=== PATIENT | female | born 1990 | race Caucasian/White ===

== ENCOUNTER 2022-06-02 11:10 | Inpatient (IN) | payer MEDICAID ==
[~2022-06-02] VITALS: Ht 162.6 cm; Wt 100.0 kg
[~2022-06-02 11:10] MED LIST: ONDA4TAB12 PO
[2022-06-02 16:43] LABS: BASOPHILS % (AUTO) 0.3 % (0-1); EOSINOPHILS # (AUTO) 0.1 X10'3 (0-0.9); EOSINOPHILS % (AUTO) 0.9 % (0-6); HEMATOCRIT 41.9 % (35.0-45.0); HEMOGLOBIN 14.4 g/dl (12.0-16.0); LYMPHOCYTES # (AUTO) 1.7 X10'3 (1.1-4.8); LYMPHOCYTES % (AUTO) 19.4 % (21-51); MEAN CORPUSCULAR HEMOGLOBIN 28.1 PG (27.0-31.0); MEAN CORPUSCULAR HGB CONC 34.4 g/dL (33.0-36.5); MEAN CORPUSCULAR VOLUME 81.7 FL (78-98); MEAN PLATELET VOLUME 7.9 FL (7.4-10.4); MONOCYTES % (AUTO) 12.1 % (2-12); NEUTROPHILS # (AUTO) 5.9 X10'3 (1.8-7.7); NEUTROPHILS % (AUTO) 67.3 % (42-75); PLATELET COUNT 697 X10'3 (140-440); RED BLOOD COUNT 5.13 X10'6 (4.20-5.60); RED CELL DISTRIBUTION WIDTH 13.2 % (11.5-14.5); WHITE BLOOD COUNT 8.7 X10'3 (4.5-11.0)
[2022-06-02 17:13] LABS: ALANINE AMINOTRANSFERASE 56 U/L (12-78); ALBUMIN 2.9 G/DL (3.4-5.0); ALBUMIN/GLOBULIN RATIO 0.6 (1.1-1.5); ALKALINE PHOSPHATASE 99 IU/L (46-116); AMYLASE 25 U/L (25-115); ANION GAP 11 (8-16); ASPARTATE AMINO TRANSFERASE 47 U/L (10-37); BILIRUBIN,TOTAL 0.5 MG/DL (0.1-1.0); BLOOD UREA NITROGEN 4 MG/DL (7-18); BUN/CREATININE RATIO 7.1 (10.0-20.0); CALCIUM 9.4 MG/DL (8.5-10.1); CHLORIDE 93 MMOL/L (99-107); CREATININE 0.56 MG/DL (0.40-0.90); GLUCOSE 92 MG/DL (70-104); LIPASE 51 U/L (73-393); POTASSIUM 3.8 MMOL/L (3.5-5.1); SODIUM 130 MMOL/L (135-145); TOTAL CARBON DIOXIDE 25.9 MMOL/L (24-32); eGFR > 90 ML/MIN
[2022-06-02 17:21] LABS: HCG SERUM QL NEGATIVE
[2022-06-02] MEDS ORDERED: iohexol 300mg/ml 100ml inj. ONE (17:36)
[2022-06-02] MEDS ORDERED: LIDOcaine 1% 30ml preserv. free vial IJ ONE (18:45)
[2022-06-02] MEDS ORDERED: ondansetron/PF 4mg/2ml inj IV PRN (21:05)
[2022-06-02] MEDS ORDERED: magnesium 4gm in 100ml NS 100 ML IV PRN (21:05)
[2022-06-02] MEDS ORDERED: potassium Cl 20 mEq SR tablet PO PRN ×2 (21:05)
[2022-06-02] MEDS ORDERED: mag hydrox/Alum hydrox/simeth 30ml oral suspension PO PRN (21:05)
[2022-06-02] MEDS ORDERED: potassium Cl 40MEQ/1/2NS 520ml 520 ML IV PRN (21:05)
[2022-06-02] MEDS ORDERED: acetaminophen 325mg tablet PO PRN ×2 (21:05)
[2022-06-02] MEDS ORDERED: magnesium hydroxide 30ml (MOM) UD suspension PO PRN (21:05)
[2022-06-02] MEDS ORDERED: HYDROcodone/acetaminophen 5mg/325mg tablet PO PRN (21:05)
[2022-06-02] MEDS ORDERED: HYDROcodone/acetaminophen 10/325mg tab PO PRN (21:05)
[2022-06-02] MEDS ORDERED: NO HOME MEDS (21:09)
[2022-06-02] MEDS ORDERED: LORazepam 0.5 MG tablet PO PRN (21:30)
--- NOTE | 2022-06-02 22:30 | NUR ---
pt arrived to floor in [facility]. settled into bed, oriented to room. call light in reach.
[2022-06-02 22:50] VITALS: BP 130/91
[2022-06-02] MEDS ORDERED: HYDROmorphone inj. 0.5 MG/0.5 ML DISP.SYRIN IV PRN (23:50)
[2022-06-02] MEDS ORDERED: HYDROmorphone 1 mg/ml syringe IV PRN (23:50)
[2022-06-03] VITALS (8 sets, daily range): BP systolic 108–156; BP diastolic 74–95
--- NOTE | 2022-06-03 06:47 | NUR ---
Patient checked on, NAD at this time. Bed locked/ lowest position, call reed within reach. Fluids present.
--- NOTE | 2022-06-03 06:48 | NUR ---
Problems reprioritized. Patient report given, questions answered & plan of care reviewed with MAR Hansen.
[2022-06-03 07:44] LABS: BASOPHILS # (AUTO) 0.1 X10'3 (0-0.2); BASOPHILS % (AUTO) 0.7 % (0-1); EOSINOPHILS # (AUTO) 0.1 X10'3 (0-0.9); EOSINOPHILS % (AUTO) 1.5 % (0-6); HEMATOCRIT 37.5 % (35.0-45.0); HEMOGLOBIN 12.8 g/dl (12.0-16.0); LYMPHOCYTES # (AUTO) 1.3 X10'3 (1.1-4.8); LYMPHOCYTES % (AUTO) 17.9 % (21-51); MEAN CORPUSCULAR HGB CONC 34.1 g/dL (33.0-36.5); MEAN CORPUSCULAR VOLUME 82.1 FL (78-98); MEAN PLATELET VOLUME 8.3 FL (7.4-10.4); MONOCYTES # (AUTO) 1.1 X10'3 (0-0.9); MONOCYTES % (AUTO) 15.9 % (2-12); NEUTROPHILS # (AUTO) 4.5 X10'3 (1.8-7.7); PLATELET COUNT 575 X10'3 (140-440); RED BLOOD COUNT 4.56 X10'6 (4.20-5.60); RED CELL DISTRIBUTION WIDTH 13.1 % (11.5-14.5)
[2022-06-03] MEDS ORDERED: docusate sod 100mg capsule PO SCH (08:00)
[2022-06-03] MEDS ORDERED: K and/or MAG REPLACEMENT MC SCH (08:00)
[2022-06-03 08:11] LABS: ALANINE AMINOTRANSFERASE 40 U/L (12-78); ALBUMIN 2.4 G/DL (3.4-5.0); ALBUMIN/GLOBULIN RATIO 0.5 (1.1-1.5); ALKALINE PHOSPHATASE 88 IU/L (46-116); ANION GAP 16 (8-16); ASPARTATE AMINO TRANSFERASE 40 U/L (10-37); BILIRUBIN,TOTAL 0.5 MG/DL (0.1-1.0); BLOOD UREA NITROGEN 3 MG/DL (7-18); BUN/CREATININE RATIO 5.9 (10.0-20.0); CALCIUM 8.8 MG/DL (8.5-10.1); CHLORIDE 95 MMOL/L (99-107); CREATININE 0.51 MG/DL (0.40-0.90); GLUCOSE 93 MG/DL (70-104); MAGNESIUM 2.3 MG/DL (1.5-2.4); POTASSIUM 3.6 MMOL/L (3.5-5.1); SODIUM 131 MMOL/L (135-145); TOTAL CARBON DIOXIDE 20.5 MMOL/L (24-32); TOTAL PROTEIN 6.8 G/DL (6.4-8.2); eGFR > 90 ML/MIN
--- NOTE | 2022-06-03 09:13 | NUR ---
PAGER ID: [phone] MESSAGE: Alice Surg [phone] Re: Peggy [phone] please call re: diet order spoke with angio re: Para/biopsy
[2022-06-03] MEDS ORDERED: albumin (human) 25% 100 ML IV solution IV ONE (11:05)
[2022-06-03 11:50] LABS: GLUCOSE,BODY FLUID 63 MG/DL; LDH,BODY FLUID 572 U/L; TOTAL PROTEIN,BODY FLUID 5.2 G/DL
[2022-06-03 11:53] LABS: EOSINOPHILS,BODY FLUID 1 %; LYMPHOCYTES,BODY FLUID 58 %; MONOCYTES,BODY FLUID 2 %; NEUTROPHILS,BODY FLUID 39 %
[2022-06-03 11:55] LABS: BF RBC COUNT 3050 /CU MM; BF WBC COUNT 1125 /CU MM (0-1000); BFAPPEAR CLOUDY; BFCOLOR YELLOW; BFVOLUME 60 ML
[2022-06-03] MEDS ORDERED: LIDOcaine 1% 30ml preserv. free vial ONE (12:41)
--- NOTE | 2022-06-03 15:56 | NUR ---
Patient is doing well s/p Bx with angio. Sites are closed, no drainage, or bruising seen. VS stable: 128/62, PL 03/01: Temp: 98.4, RR: 16, P:62.
[2022-06-03] MEDS ORDERED: HYDR-3965 PO (17:28)
--- NOTE | 2022-06-03 17:47 | NUR ---
Patient is discharging. PL controlled, refused any pain medications. Educated on s/s of monitoring post discharge, Paperwork received. Accompanied by , leaving personal vehicle. Patients s/p Bx with angio are CDI, no draining, no bruising. Notified to call Dr. Sullivan's office with phone number provided. IV d/c'd, cannula intact.
[2022-06-03] MEDS ORDERED: enoxaparin 40mg/0.4ml syringe SQ SCH (20:00)
[2022-06-04 16:28] LABS: HBSAG SCREEN Negative (Negative); HEP A AB, IGM Negative (Negative); HEPATITIS C VIRUS ANTIBODY Non Reactive (Non Reactive)
[2022-06-07 12:20] LABS: HBV IU/mL HBV DNA not detected IU/mL (.)
== END 2022-06-03 18:00 | disposition home or self-care (01) | DRG 694 ==
LOC: ER 11:11 → ED HOLD 21:07 → SUR 3N 22:45
PROVIDERS: ADMIT Family Medicine; ATTEND Internal Medicine
PROC: BW211ZZ Computerized Tomography (CT Scan) of Abdomen and Pelvis using Low Osmolar Contrast (ICD-10-PCS; principal; 2022-06-02)
PROC: 0W9G3ZX Drainage of Peritoneal Cavity, Percutaneous Approach, Diagnostic (ICD-10-PCS; 2022-06-03)
PROC: 0DBU3ZX Excision of Omentum, Percutaneous Approach, Diagnostic (ICD-10-PCS; 2022-06-03)
DX: C80.1 Malignant (primary) neoplasm, unspecified (principal); R18.0 Malignant ascites; J90 Pleural effusion, not elsewhere classified; K76.0 Fatty (change of) liver, not elsewhere classified; R16.2 Hepatomegaly with splenomegaly, not elsewhere classified; E87.1 Hypo-osmolality and hyponatremia; D25.9 Leiomyoma of uterus, unspecified; D75.839 Thrombocytosis, unspecified; F43.10 Post-traumatic stress disorder, unspecified; J98.11 Atelectasis; R00.0 Tachycardia, unspecified; F41.9 Anxiety disorder, unspecified; K42.9 Umbilical hernia without obstruction or gangrene; K80.20 Calculus of gallbladder without cholecystitis without obstruction; N83.292 Other ovarian cyst, left side; Z80.0 Family history of malignant neoplasm of digestive organs; Z87.891 Personal history of nicotine dependence; Z56.0 Unemployment, unspecified; Z59.00 Homelessness unspecified; Z79.899 Other long term (current) drug therapy
CPT/HCPCS: 36415; 49083; 49180; 74177; 77012; 80053; 82150; 82945; 83615; 83690; 83735; 84157; 84703; 85025; 86301; 86304; 86705; 86706; 86709; 86803; 87070; 87075; 87081; 87340; 87517; 87522; 89051; 96374; 99285; A4615; G0378; J3490; P9047; Q9967

== ENCOUNTER 2022-06-19 07:14 | Emergency (ER) | payer MEDICAID ==
[~2022-06-19] VITALS: Ht 162.6 cm; Wt 97.0 kg
[~2022-06-19 07:14] MED LIST changes: +HYDR-3965 PO
[2022-06-19] MEDS ORDERED: LIDOcaine 1% W/epiNEPHrine 1:100,000 20ml vial IJ ONE (09:10)
[2022-06-19 09:16] LABS: BASOPHILS # (AUTO) 0.1 X10'3 (0-0.2); BASOPHILS % (AUTO) 0.9 % (0-1); EOSINOPHILS # (AUTO) 0.1 X10'3 (0-0.9); EOSINOPHILS % (AUTO) 1.4 % (0-6); HEMOGLOBIN 14.7 g/dl (12.0-16.0); MONOCYTES # (AUTO) 0.8 X10'3 (0-0.9); NEUTROPHILS # (AUTO) 4.7 X10'3 (1.8-7.7); WHITE BLOOD COUNT 7.2 X10'3 (4.5-11.0)
[2022-06-19 09:18] LABS: HEMATOCRIT 44.7 % (35.0-45.0); LYMPHOCYTES # (AUTO) 1.6 X10'3 (1.1-4.8); LYMPHOCYTES % (AUTO) 22.3 % (21-51); MEAN CORPUSCULAR HEMOGLOBIN 26.8 PG (27.0-31.0); MEAN CORPUSCULAR HGB CONC 32.9 g/dL (33.0-36.5); MEAN CORPUSCULAR VOLUME 81.4 FL (78-98); MEAN PLATELET VOLUME 7.9 FL (7.4-10.4); MONOCYTES % (AUTO) 10.9 % (2-12); NEUTROPHILS % (AUTO) 64.5 % (42-75); PLATELET COUNT 689 X10'3 (140-440); RED BLOOD COUNT 5.49 X10'6 (4.20-5.60); RED CELL DISTRIBUTION WIDTH 13.8 % (11.5-14.5)
[2022-06-19 09:43] LABS: ALANINE AMINOTRANSFERASE 40 U/L (12-78); ALBUMIN 2.5 G/DL (3.4-5.0); ALBUMIN/GLOBULIN RATIO 0.5 (1.1-1.5); ALKALINE PHOSPHATASE 110 IU/L (46-116); ANION GAP 11 (8-16); ASPARTATE AMINO TRANSFERASE 50 U/L (10-37); BILIRUBIN,TOTAL 0.5 MG/DL (0.1-1.0); BLOOD UREA NITROGEN 6 MG/DL (7-18); CALCIUM 9.3 MG/DL (8.5-10.1); CHLORIDE 98 MMOL/L (99-107); CREATININE 0.67 MG/DL (0.40-0.90); GLUCOSE 104 MG/DL (70-104); MAGNESIUM 2.4 MG/DL (1.5-2.4); POTASSIUM 4.1 MMOL/L (3.5-5.1); SODIUM 135 MMOL/L (135-145); TOTAL CARBON DIOXIDE 25.9 MMOL/L (24-32); TOTAL PROTEIN 7.2 G/DL (6.4-8.2); eGFR > 90 ML/MIN
--- NOTE | 2022-06-19 09:54 | NUR ---
Dr Paigefs at bedside to perform paracentesis.
[2022-06-19] MEDS ORDERED: albumin (human) 25% 100 ML IV solution IV ONE (10:15)
[2022-06-19 11:32] VITALS: BP 117/73
== END 2022-06-19 11:48 | disposition home or self-care (01) ==
LOC: ER 07:15
DX: R18.8 Other ascites (principal); F41.9 Anxiety disorder, unspecified; F12.10 Cannabis abuse, uncomplicated; Z59.00 Homelessness unspecified; Z56.0 Unemployment, unspecified; Z79.899 Other long term (current) drug therapy; Z79.1 Long term (current) use of non-steroidal anti-inflammatories (NSAID)
CPT/HCPCS: 49083; 71045; 80053; 83735; 85025; 93005; 96374; 99285; J3490; P9047

== ENCOUNTER 2022-06-30 07:15 | Day surgery (SDC) | payer MEDICAID ==
[~2022-06-30] VITALS: Ht 162.6 cm; Wt 92.7 kg
[2022-06-30] MEDS ORDERED: albumin 25% 100mL bottle x 1 IV PRN (07:40)
[2022-06-30 07:57] VITALS: BP 127/76
[2022-06-30] MEDS ORDERED: LIDOcaine 1%/PF 5ML 10 MG/ML VIAL SQ ONE (08:10)
[2022-06-30 09:19] VITALS: BP 118/61
[2022-06-30 09:33] VITALS: BP 117/78
[2022-06-30 09:48] VITALS: BP 108/67
[2022-06-30 10:03] VITALS: BP 116/69
[2022-06-30 10:18] VITALS: BP 113/58
== END 2022-06-30 10:55 | disposition home or self-care (01) ==
LOC: SSTAY O 07:15
PROVIDERS: ATTEND Radiology Vascular & Interventional Radiology
DX: C56.9 Malignant neoplasm of unspecified ovary (principal); R18.0 Malignant ascites; F40.00 Agoraphobia, unspecified; Z79.899 Other long term (current) drug therapy; Z80.0 Family history of malignant neoplasm of digestive organs
CPT/HCPCS: 49083; J3490; P9047; A6258; A6449

== ENCOUNTER 2022-07-11 08:13 | Day surgery (SDC) | payer MEDICAID ==
[~2022-07-11 08:13] MED LIST changes: -HYDR-3965 PO
[2022-07-11] MEDS ORDERED: LIDOcaine 1%/PF 5ML 10 MG/ML VIAL SQ ONE (08:15)
[2022-07-11 08:23] VITALS: BP 125/85
[2022-07-11] MEDS ORDERED: IBUP-2766 PO (08:31)
[2022-07-11] MEDS ORDERED: normal saline 1000ml 1,000 ML IV PRN (08:35)
[2022-07-11 09:18] VITALS: BP 122/77
[2022-07-11 09:30] VITALS: BP 134/89
[2022-07-11] MEDS ORDERED: pneumococcal 23-VAL P-sac vacc 25 mcg/0.5ml vial IMVAC ONE (09:30)
[2022-07-11 09:46] VITALS: BP 125/65
[2022-07-11] MEDS: albumin 25% 100mL bottle x 1 IV PRN ×2 (09:51→10:39)
[2022-07-11 10:00] VITALS: BP 113/78
[2022-07-11 10:15] VITALS: BP 111/70
== END 2022-07-11 10:45 | disposition home or self-care (01) ==
LOC: SSTAY O 08:13
PROVIDERS: ATTEND Radiology Vascular & Interventional Radiology
DX: C56.9 Malignant neoplasm of unspecified ovary (principal); R18.0 Malignant ascites; F40.00 Agoraphobia, unspecified; Z23 Encounter for immunization; Z79.899 Other long term (current) drug therapy; Z98.890 Other specified postprocedural states
CPT/HCPCS: 49083; 90471; 90732; A6258; J3490; P9047; A6449

== ENCOUNTER 2022-07-19 07:44 | Day surgery (SDC) | payer MEDICAID ==
[2022-07-19] VITALS (8 sets, daily range): BP systolic 114–128; BP diastolic 65–89
[~2022-07-19] VITALS: Ht 162.6 cm; Wt 92.4 kg
[~2022-07-19 07:44] MED LIST changes: +IBUP-2766 PO
[2022-07-19] MEDS ORDERED: LIDOcaine 1%/PF 5ML 10 MG/ML VIAL SQ ONE (08:05)
[2022-07-19] MEDS ORDERED: albumin 25% 100mL bottle x 1 IV PRN (08:15)
== END 2022-07-19 10:30 | disposition home or self-care (01) ==
LOC: SSTAY O 07:44
PROVIDERS: ATTEND Radiology Diagnostic Radiology
DX: C56.9 Malignant neoplasm of unspecified ovary (principal); R18.0 Malignant ascites; F40.00 Agoraphobia, unspecified; Z79.899 Other long term (current) drug therapy; Z80.1 Family history of malignant neoplasm of trachea, bronchus and lung; Z80.0 Family history of malignant neoplasm of digestive organs
CPT/HCPCS: 49083; J3490; P9047; A6258; A6449

== ENCOUNTER 2022-07-26 06:41 | Day surgery (SDC) | payer MEDICAID ==
[~2022-07-26] VITALS: Ht 165.1 cm; Wt 91.9 kg
[~2022-07-26 06:41] MED LIST changes: +LIDOcaine 1%/PF 5ML 10 MG/ML VIAL SQ ONE
[2022-07-26 06:45] VITALS: BP 129/80
[2022-07-26] MEDS ORDERED: AMOX1TAB15 PO (06:55)
[2022-07-26] MEDS ORDERED: OFLO5DRO5 LEFT EAR (06:55)
[2022-07-26] MEDS ORDERED: albumin 25% 100mL bottle x 1 IV PRN (07:05)
[2022-07-26 08:27] VITALS: BP 137/62
[2022-07-26 08:42] VITALS: BP 135/76
[2022-07-26 08:57] VITALS: BP 124/77
[2022-07-26 09:00] VITALS: BP 121/76
[2022-07-26 09:15] VITALS: BP 134/75
== END 2022-07-26 09:30 | disposition home or self-care (01) ==
LOC: SSTAY O 06:41
PROVIDERS: ATTEND Radiology Vascular & Interventional Radiology
DX: C56.9 Malignant neoplasm of unspecified ovary (principal); R18.0 Malignant ascites; F40.00 Agoraphobia, unspecified; Z79.899 Other long term (current) drug therapy; Z80.0 Family history of malignant neoplasm of digestive organs; Z83.511 Family history of glaucoma
CPT/HCPCS: 49083; J3490; P9047; A6258; A6402; A6449

== ENCOUNTER 2022-08-25 08:11 | Day surgery (SDC) | payer MEDICAID ==
[~2022-08-25] VITALS: Ht 165.1 cm; Wt 93.6 kg
[~2022-08-25 08:11] MED LIST changes: +APIX2.5T PO; +IBUP-1984 PO; -IBUP-2766 PO; -LIDOcaine 1%/PF 5ML 10 MG/ML VIAL SQ ONE; -ONDA4TAB12 PO
[2022-08-25] MEDS ORDERED: albumin 25% 100mL bottle x 1 IV PRN (08:25)
[2022-08-25 08:36] VITALS: BP 130/90
[2022-08-25 10:10] VITALS: BP 152/86
[2022-08-25 10:25] VITALS: BP 127/89
[2022-08-25 10:40] VITALS: BP 127/89
[2022-08-25 10:55] VITALS: BP 140/84
[2022-08-25 11:10] VITALS: BP 134/78
== END 2022-08-25 11:10 | disposition home or self-care (01) ==
LOC: SSTAY O 08:11
PROVIDERS: ATTEND Radiology Vascular & Interventional Radiology
DX: J90 Pleural effusion, not elsewhere classified (principal); C56.9 Malignant neoplasm of unspecified ovary; R18.0 Malignant ascites; F40.00 Agoraphobia, unspecified; Z79.899 Other long term (current) drug therapy; Z98.890 Other specified postprocedural states; Z80.0 Family history of malignant neoplasm of digestive organs; Z83.511 Family history of glaucoma
CPT/HCPCS: 32555; 76705; C1729; J3490; 49083; A4615; A6258

== ENCOUNTER 2022-09-01 07:45 | Day surgery (SDC) | payer MEDICAID ==
[~2022-09-01] VITALS: Ht 165.1 cm; Wt 94.9 kg
[~2022-09-01 07:45] MED LIST changes: -APIX2.5T PO
[2022-09-01] MEDS ORDERED: albumin 25% 100mL bottle x 1 IV PRN (08:00)
[2022-09-01 08:20] VITALS: BP 134/91
[2022-09-01 09:08] VITALS: BP 110/83
[2022-09-01 09:15] VITALS: BP 112/70
[2022-09-01 09:30] VITALS: BP 107/73
[2022-09-01 09:46] VITALS: BP 117/77
[2022-09-01 10:47] VITALS: BP 129/72
== END 2022-09-01 10:55 | disposition home or self-care (01) ==
LOC: SSTAY O 07:45
PROVIDERS: ATTEND Radiology Vascular & Interventional Radiology
DX: C56.9 Malignant neoplasm of unspecified ovary (principal); R18.0 Malignant ascites; F40.00 Agoraphobia, unspecified; Z79.899 Other long term (current) drug therapy; Z98.890 Other specified postprocedural states; Z80.0 Family history of malignant neoplasm of digestive organs; Z83.511 Family history of glaucoma
CPT/HCPCS: 49083; C1729; J3490; P9047; A6258

== ENCOUNTER 2022-09-05 08:33 | Emergency (ER) | payer MEDICAID ==
[~2022-09-05] VITALS: Ht 165.1 cm; Wt 90.0 kg
[2022-09-05 08:48] VITALS: TEMP 98.1
[2022-09-05 08:49] LABS: BASOPHILS # (AUTO) 0.1 X10'3 (0-0.2); BASOPHILS % (AUTO) 1.1 % (0-1); EOSINOPHILS # (AUTO) 0.1 X10'3 (0-0.9); HEMATOCRIT 38.6 % (35.0-45.0); HEMOGLOBIN 12.6 g/dl (12.0-16.0); LYMPHOCYTES # (AUTO) 1.8 X10'3 (1.1-4.8); LYMPHOCYTES % (AUTO) 22.4 % (21-51); MEAN CORPUSCULAR HEMOGLOBIN 25.8 PG (27.0-31.0); MEAN CORPUSCULAR HGB CONC 32.7 g/dL (33.0-36.5); MEAN PLATELET VOLUME 7.6 FL (7.4-10.4); MONOCYTES # (AUTO) 0.7 X10'3 (0-0.9); MONOCYTES % (AUTO) 9.2 % (2-12); NEUTROPHILS # (AUTO) 5.3 X10'3 (1.8-7.7); NEUTROPHILS % (AUTO) 66.3 % (42-75); PLATELET COUNT 546 X10'3 (140-440); RED BLOOD COUNT 4.89 X10'6 (4.20-5.60); RED CELL DISTRIBUTION WIDTH 18.2 % (11.5-14.5)
[2022-09-05 09:04] LABS: ALANINE AMINOTRANSFERASE 35 U/L (12-78); ALBUMIN 2.4 G/DL (3.4-5.0); ALBUMIN/GLOBULIN RATIO 0.6 (1.1-1.5); ALKALINE PHOSPHATASE 116 IU/L (46-116); ANION GAP 10 (8-16); ASPARTATE AMINO TRANSFERASE 23 U/L (10-37); BILIRUBIN,TOTAL 0.4 MG/DL (0.1-1.0); BLOOD UREA NITROGEN 6 MG/DL (7-18); BUN/CREATININE RATIO 10.3 (10.0-20.0); CALCIUM 8.8 MG/DL (8.5-10.1); CHLORIDE 100 MMOL/L (99-107); CREATININE 0.58 MG/DL (0.40-0.90); GLUCOSE 105 MG/DL (70-104); POTASSIUM 4.2 MMOL/L (3.5-5.1); SODIUM 133 MMOL/L (135-145); TOTAL CARBON DIOXIDE 22.6 MMOL/L (24-32); TOTAL PROTEIN 6.2 G/DL (6.4-8.2); eGFR > 90 ML/MIN
--- NOTE | 2022-09-05 09:13 | NUR ---
PLACED PT ON MONITOR.
--- NOTE | 2022-09-05 09:54 | NUR ---
6024 I have reviewed and agree with all interventions, assessments performed and documented by MAR Mondragon.
--- NOTE | 2022-09-05 13:17 | NUR ---
IR TEAM INSERTING CHEST TUBE
[2022-09-05 13:48] VITALS: BP 122/94; PULSE 126; RESP 14; O2SAT 97
[2022-09-05 13:52] VITALS: BP 118/83; PULSE 122; RESP 20; O2SAT 95
[2022-09-05 14:34] LABS: PLEURAL FLUID PH 7.075 (7.63-7.65)
[2022-09-05 14:35] LABS: BFSOURCE PLEURAL FLD
[2022-09-05 15:24] LABS: EOSINOPHILS,BODY FLUID 3 %; LYMPHOCYTES,BODY FLUID 81 %; MONOCYTES,BODY FLUID 11 %; NEUTROPHILS,BODY FLUID 5 %
[2022-09-05 15:25] LABS: BF RBC COUNT 172500 /CU MM; BF WBC COUNT 1063 /CU MM (0-1000); BFAPPEAR BLOODY; BFCOLOR RED; BFVOLUME 60 ML
[2022-09-05 15:26] LABS: BF MESOTHELIAL CELLS FEW
[2022-09-05 15:35] LABS: GLUCOSE,BODY FLUID 2 MG/DL; LDH,BODY FLUID 648 U/L; TOTAL PROTEIN,BODY FLUID 3.3 G/DL
--- NOTE | 2022-09-05 16:02 | NUR ---
DR RODARTE AT BEDSIDE TO REMOVE PIG-TAIL AT THIS TIME. SPOUSE AT BEDSIDE.
[2022-09-05] MEDS ORDERED: ondansetron 4mg rapidly disintigrating tab PO ONE (16:05)
== END 2022-09-05 16:19 | disposition home or self-care (01) ==
LOC: ER 08:33
DX: J90 Pleural effusion, not elsewhere classified (principal); F41.9 Anxiety disorder, unspecified; Z79.899 Other long term (current) drug therapy; F12.10 Cannabis abuse, uncomplicated; Z59.00 Homelessness unspecified; Z56.0 Unemployment, unspecified
CPT/HCPCS: 32555; 32557; 36415; 71045; 71250; 80053; 82945; 83615; 83880; 83986; 84157; 84484; 85025; 87070; 87075; 87102; 89051; 93005; 99285; A4615; A6258

== ENCOUNTER 2022-09-22 07:51 | Day surgery (SDC) | payer MEDICAID ==
[2022-09-22] VITALS (10 sets, daily range): BP systolic 93–112; BP diastolic 53–73; PULSE 99–115; RESP 14–16; TEMP 97.9; O2SAT 94–96
[~2022-09-22] VITALS: Ht 165.1 cm; Wt 89.6 kg
[2022-09-22] MEDS ORDERED: albumin 25% 100mL bottle x 1 IV PRN (08:05)
[2022-09-22] MEDS ORDERED: OXYC-658 PO (08:08)
[2022-09-22] MEDS ORDERED: POTASSIUM (08:08)
[2022-09-22] MEDS ORDERED: FURO20TA4 PO (08:08)
== END 2022-09-22 11:40 | disposition home or self-care (01) ==
LOC: SSTAY O 07:51
PROVIDERS: ATTEND Radiology Vascular & Interventional Radiology
DX: C56.9 Malignant neoplasm of unspecified ovary (principal); R18.0 Malignant ascites; F40.00 Agoraphobia, unspecified; Z98.890 Other specified postprocedural states; Z79.899 Other long term (current) drug therapy; Z80.0 Family history of malignant neoplasm of digestive organs; Z83.511 Family history of glaucoma
CPT/HCPCS: 49083; C1729; J3490; P9047; A6258

== ENCOUNTER 2022-09-27 06:46 | Day surgery (SDC) | payer MEDICAID ==
[2022-09-27] VITALS (8 sets, daily range): BP systolic 99–134; BP diastolic 34–92; PULSE 110–121; RESP 16–18; TEMP 98.4; O2SAT 92–96
[~2022-09-27] VITALS: Ht 165.1 cm; Wt 80.8 kg
[~2022-09-27 06:46] MED LIST changes: +FURO20TA4 PO; +OXYC-658 PO; +POTASSIUM
[2022-09-27] MEDS ORDERED: albumin 25% 100mL bottle x 1 IV PRN (07:00)
== END 2022-09-27 09:50 | disposition home or self-care (01) ==
LOC: SSTAY O 06:46
PROVIDERS: ATTEND Radiology Diagnostic Radiology
DX: C56.9 Malignant neoplasm of unspecified ovary (principal); J91.0 Malignant pleural effusion; F40.00 Agoraphobia, unspecified; Z98.890 Other specified postprocedural states; Z79.899 Other long term (current) drug therapy
CPT/HCPCS: 32555; 71045; C1729; J3490